=== PATIENT | female | born 1980 | race Caucasian/White ===

== ENCOUNTER → 2018-06-24 | Outpatient (CLI) | payer OTHER ==
[~2018-06-24] MED LIST: ADVAIR 250-501 EACH IH; ALBUTEROL2.5 MG/31 IH; FLONASE; LEXAPRO 10 MG T10 MG PO; NORCO 5-325 TA1 EACH PO; PROTONIX40 M2; PROVENTIL; XOPENEX0.63 MG/3; ZOFRAN ODT4 MG PO; ZPAK PO; ZYRTEC-D TABLE1 EAC1 PO
== END ==
LOC: RAD 09:25
DX: L40.0 Psoriasis vulgaris (principal); Z72.89 Other problems related to lifestyle; J45.909 Unspecified asthma, uncomplicated; Z79.899 Other long term (current) drug therapy